=== PATIENT | female | born 1960 | race Caucasian/White ===

== ENCOUNTER → 2023-09-16 08:13 | Outpatient (REF) | payer MEDICARE, SELFPAY | LOC: HWRAD 08:13 | PROVIDERS: ATTENDING PHYSICIAN Family Medicine | DX: R74.8 Abnormal levels of other serum enzymes (principal) | CPT/HCPCS: 76700 ==

== ENCOUNTER → 2023-11-12 14:36 | Outpatient (REF) | payer MEDICARE, SELFPAY | LOC: HWWDC 14:36 | PROVIDERS: ATTENDING PHYSICIAN Family Medicine | DX: Z12.31 Encounter for screening mammogram for malignant neoplasm of breast (principal) | CPT/HCPCS: 77063; 77067 ==

== ENCOUNTER → 2024-05-03 12:09 | Outpatient (REF) | payer MEDICARE, SELFPAY | LOC: UCDH 12:09 | PROVIDERS: ATTENDING PHYSICIAN Physician Assistant Medical; FAMILY PHYSICIAN Family Medicine | DX: S40.011A Contusion of right shoulder, initial encounter (principal) | CPT/HCPCS: 73030 ==

== ENCOUNTER → 2024-05-06 12:47 | Outpatient (REF) | payer MEDICARE, SELFPAY | LOC: RAD 12:47 | PROVIDERS: ATTENDING PHYSICIAN Student in an Organized Health Care Education/Training Program; FAMILY PHYSICIAN Family Medicine | DX: S42.251A Displaced fracture of greater tuberosity of right humerus, initial encounter for closed fracture (principal) | CPT/HCPCS: 73200 ==

== ENCOUNTER 2024-05-13 06:37 | Day surgery (SDC) | payer MEDICARE, SELFPAY ==
[2024-05-13] VITALS (31 sets, daily range): BP systolic 71–145; BP diastolic 53–86; BMI 26.0
[2024-05-13 08:37] LABS: Glucose - Point of Care 193 mg/dl (70-99)
[2024-05-13] MEDS: CELEBREX 200 MG PO (09:04)
[2024-05-13] MEDS: TYLENOL 1000 MG PO (09:04)
[2024-05-13 09:40] LABS: Hematocrit 45.3 % (37.0-47.0); Mean Corp Hgb Conc. 35.3 g/dL (33.0-37.0); Mean Corpuscular Hgb 33.5 pg (27.0-31.0); Mean Platelet Volume 9.4 fL (7.4-10.4); Platelet Count 274 10^3/uL (130-400); Red Blood Cell Count 4.77 10^6/uL (4.20-5.40); Red Cell Dist. Width 12.7 % (11.5-14.5); White Blood Cell Count 7.9 10^3/uL (4.8-10.8)
[2024-05-13 10:53] LABS: Glucose - Point of Care 131 mg/dl (70-99)
[2024-05-13 11:35] LABS: Glucose - Point of Care 101 mg/dl (70-99)
[2024-05-13] MEDS: NORMOSOL-R/PLASMALYTE-A 500 IV ×2 (11:53→12:59)
[2024-05-13 13:40] LABS: Glucose - Point of Care 139 mg/dl (70-99)
== END 2024-05-13 15:05 | disposition home or self-care (01) ==
LOC: SDS 06:37
PROVIDERS: ATTENDING PHYSICIAN Specialist
DX: S42.251A Displaced fracture of greater tuberosity of right humerus, initial encounter for closed fracture (principal); W19.XXXA Unspecified fall, initial encounter; Y93.K1 Activity, walking an animal
CPT/HCPCS: 23630; 73030; 76000; 82962; 85027; 93005; C1713; C1769

== ENCOUNTER → 2024-06-21 13:22 | Outpatient (REF) | payer MEDICARE, SELFPAY | LOC: RAD 13:22 | PROVIDERS: ATTENDING PHYSICIAN Student in an Organized Health Care Education/Training Program; FAMILY PHYSICIAN Family Medicine | DX: I73.9 Peripheral vascular disease, unspecified (principal); E78.2 Mixed hyperlipidemia; I77.1 Stricture of artery | CPT/HCPCS: 75571; 93880 ==

== ENCOUNTER → 2024-07-07 14:39 | Outpatient (REF) | payer MEDICARE, SELFPAY | LOC: RAD 14:39 | PROVIDERS: ATTENDING PHYSICIAN Student in an Organized Health Care Education/Training Program; FAMILY PHYSICIAN Family Medicine | DX: R42 Dizziness and giddiness (principal) | CPT/HCPCS: 70496; 70498; Q9967 ==

== ENCOUNTER 2024-08-09 06:11 | Inpatient (IN) | payer MEDICARE, SELFPAY ==
[2024-08-04 08:58] VITALS: BMI 26.8
[2024-08-04 09:21] LABS: % Basophils 0.7 % (0-2); % Immature Granulocytes 0.5 % (0-0.5); % Lymphocytes 27.5 % (20.5-51.1); % Monocytes 8.6 % (1.7-9.3); % Neutrophils 62.7 % (42.2-75.2); Absolute Basophils 0.1 10^3/uL (0-0.2); Absolute Lymphocytes 2.4 10^3/uL (1.2-3.4); Absolute Monocytes 0.8 10^3/uL (0.1-0.6); Absolute Neutrophils 5.5 10^3/uL (1.4-6.5); Hematocrit 47.2 % (37.0-47.0); Hemoglobin 16.2 g/dL (12.0-16.0); Mean Corp Hgb Conc. 34.3 g/dL (33.0-37.0); Mean Corpuscular Hgb 32.4 pg (27.0-31.0); Mean Corpuscular Volume 94.4 fL (81.0-99.0); Mean Platelet Volume 9.7 fL (7.4-10.4); Nucleated Red Blood Cells % 0 %; Platelet Count 256 10^3/uL (130-400); Red Cell Dist. Width 12.7 % (11.5-14.5); White Blood Cell Count 8.7 10^3/uL (4.8-10.8)
[2024-08-04 09:33] LABS: INR 0.97; PT 13.4 Sec (11.4-14.6)
[2024-08-04 09:34] LABS: APTT 35.3 Sec (23.4-35.0)
[2024-08-04 10:00] LABS: Blood Urea Nitrogen 29 mg/dl (7-17); Calcium 9.3 mg/dl (8.4-10.2); Carbon Dioxide 29 mmol/L (22-30); Chloride 103 mmol/L (98-107); Estimated Creatinine Clearance 56 ml/min; Glucose 117 mg/dl (70-99); Potassium 4.3 mmol/L (3.5-5.1); Sodium 138 mmol/L (135-145); eGFR > 60.00
[2024-08-09] VITALS (13 sets, daily range): BP systolic 119–150; BP diastolic 66–85; BMI 28.5
[2024-08-09] MEDS: BACTROBAN NASAL 1 GRAM NASAL (07:21)
[2024-08-09] MEDS: PERIDEX 0.12% ORAL RINSE 15 ML PO (07:22)
[2024-08-09] MEDS: NSS 500 IV (07:22)
[2024-08-09 07:34] LABS: Glucose - Point of Care 126 mg/dl (70-99)
--- NOTE | 2024-08-09 07:44 | W.SUR.PREOP ---
Pre-Operative Surgical Note
-
I have examined this patient prior to the performance of the scheduled procedure.
The patient's condition is unchanged from the time of the current History and
Physical and the patient is able to undergo the scheduled procedure.
[2024-08-09 09:08] LABS: ACT-LR - POC 322 Seconds (116-155)
[2024-08-09 09:46] LABS: Glucose - Point of Care 122 mg/dl (70-99)
--- NOTE | 2024-08-09 10:15 | W.IMMPOSTOP ---
Surgical Immed Post Op Note
-
Primary Surgeon: Lea
Assisting Surgeon: Zaria
Pre-op Diagnosis: R carotid stenosis
Post-op Diagnosis: R carotid stenosis
Procedure Performed: R CEA
Anesthesia Type: General
Specimen / Cultures: None
Estimated Blood Loss: 30 cc
Complications: None
Operative Findings: R CEA
[2024-08-09 10:40] LABS: Glucose - Point of Care 146 mg/dl (70-99)
[2024-08-09] MEDS: CARDENE 200 IV (10:45)
--- NOTE | 2024-08-09 10:46 | OR.RPT ---
Operative Report
Operative Report
Date of Operation: 08/09/2024
Pre Op Diagnosis: Asymptomatic high-grade right carotid artery stenosis
Post Op Diagnosis: Asymptomatic high-grade right carotid artery stenosis
Procedure: RIGHT carotid endarterectomy with patch angioplasty using bovine pericardium
Surgeon: Charly Tate III, MD
Repairer Welding Equipment: Joseph Enciso MD PGY1
Anesthesia: General
Complications: None
History and Indications for Procedure: 64-year-old female with high-grade asymptomatic right carotid artery stenosis
Procedure in Detail: Bernadette Aceves was correctly identified and placed supine on the operating table. After adequate induction of anesthesia the right neck was positioned, prepped and draped in the usual sterile fashion. Preoperative antibiotics
were administered. A timeout procedure was performed with the nursing and anesthesia staff confirming the patients identity as well as the nature and laterality of the procedure.
The carotid bifurcation was marked with ultrasound at the beginning of the case. The incision was planned accordingly. An incision was made along the anterior border of the right sternocleidomastoid muscle. Electrocautery was used to divide the
subcutaneous tissue and platysma. The carotid sheath was entered with sharp dissection. The internal jugular vein was retracted laterally. The vagus nerve was identified and protected throughout the case. The common carotid artery was identified at
the base of this incision and carefully encircled with a vessel loop. The patient was systemically heparinized. The dissection was continued distally towards the carotid bifurcation. The facial vein was skeletonized, ligated and divided between ties
and clips. The proximal external carotid artery was encircled with a vessel loop. The distal internal carotid artery was encircled with a vessel loop at a soft spot on the artery beyond the plaque.
The internal vessel loop was secured followed by the common and external. An arteriotomy was made on the distal common carotid artery with an 11-blade. This was extended proximally and distally with Caputo scissors. The arteriotomy was extended
distally through the plaque to an area of normal appearing internal carotid artery. The distal vessel loop was replaced with a short tip hockey-stick type vascular clamp. An endarterectomy was performed with a [place] elevator in the standard
fashion. The proximal extent of the plaque was transected with scissors. The distal end of the plaque in the internal carotid artery feathered nicely with no distal intimal flap identified. The plaque extending into the external carotid artery was
everted. Once the plaque was fully removed the endarterectomy plane was irrigated with heparinized saline and any loose fronds of tissue were removed. A pre-cut piece of bovine pericardium was sewn in place using a running 6-0 Prolene suture. Prior
to the completion of the patch the common carotid was allowed to forward bleed and the external was allowed to back bleed. The area under the patch was irrigated with heparinized saline to remove any potential thrombus or debris. The anastomosis was
completed.
The external vessel loop was released first, followed by the common and then the internal. There was an excellent pulse in the distal internal carotid artery. An excellent quality Doppler signal in the distal internal carotid artery was also
confirmed. The patch suture line was closely inspected for hemostasis and was achieved. Protamine was administered. Hemostasis was achieved in the wound bed. The wound was irrigated with saline solution.
The wound was then closed in layers. Sterile skin glue was applied. The patient awoke from anesthesia with no immediate neuro deficits and was taken to the PACU in stable condition.
Attestation: I was present and responsible for the entire procedure
Signed:
Charly Tate III, MD
[facility] Vascular Surgery
[phone] (cell)
[2024-08-09] MEDS: DILAUDID 0.5 MG IV ×3 (11:06→22:27)
[2024-08-09 11:15] LABS: Hematocrit 44.3 % (37.0-47.0); Hemoglobin 14.6 g/dL (12.0-16.0); Mean Corpuscular Hgb 31.8 pg (27.0-31.0); Mean Corpuscular Volume 96.5 fL (81.0-99.0); Mean Platelet Volume 9.9 fL (7.4-10.4); Platelet Count 235 10^3/uL (130-400); Red Blood Cell Count 4.59 10^6/uL (4.20-5.40); Red Cell Dist. Width 12.6 % (11.5-14.5)
[2024-08-09 11:43] LABS: Blood Urea Nitrogen 17 mg/dl (7-17); Calcium 8.1 mg/dl (8.4-10.2); Carbon Dioxide 19 mmol/L (22-30); Chloride 111 mmol/L (98-107); Estimated Creatinine Clearance 85 ml/min; Glucose 159 mg/dl (70-99); Sodium 139 mmol/L (135-145); eGFR > 60.00
[2024-08-09] MEDS: DILAUDID 0.25 MG IV (11:46)
[2024-08-09] MEDS: NSS 1000 IV (12:05)
--- NOTE | 2024-08-09 13:08 | CON.INTV ---
Consultation
Consultation Request
Date/Time Consultation Requested: 08/09/2024-1 PM
Date/Time Consultation Performed: 08/09/2024-1:30 PM
Requesting Provider: Vascular surgery
Performing Provider: Dr. Lew
Reason for Consultation: Postoperative critical care management
Medical History
-
Chief Complaint: Carotid stenosis
History of Present Illness:
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
consulted for postoperative critical care management 08/09/2024. The patient had a significant headache-received nitroglycerin intraoperatively, and is seen postoperatively. She continues to have a headache but much improved. She has no dysarthria
or focal weakness. She denies any shortness of breath, chest congestion, productive cough, abdominal pain, leg swelling or weakness.
Past Medical History
Past Medical History: None (Hypertension. Hyperlipidemia. Diabetes. Chronic leg neuropathy. Cigarette smoker-2 daily. PE postoperatively. Carotid stenosis. Right TKA 2010. Back surgery. Shoulder fracture 04/2024.)
Social History
Tobacco: Smoker (2 cigarettes daily for most of her adult life)
Alcohol: Occasional
Drug: None
Living: With Family
Occupational Exposures: No known asbestos exposure
Environmental Exposures: No known tuberculosis exposure
Family History
Family History: Reviewed & Not Pertinent and Other (Father-CAD. Mother CAD and stomach cancer. Paternal grandfather colon cancer. Paternal uncle colon cancer. Sibling with lymphoma. Sisters with diabetes. Brother with prostate cancer.)
Allergies / Home Medications
Allergies
Allergy/AdvReac Type Severity Reaction Status Date / Time
acetaminophen [From Percocet] Allergy Unknown Itching Verified 08/09/24 07:33
oxycodone [From Percocet] Allergy Unknown Itching Verified 08/09/24 07:33
hydrocodone Allergy Itching Verified 08/02/24 08:07
pollen extracts Allergy seasonal Verified 08/02/24 08:07
allergies
Home Medications
�Medication �Instructions �Recorded �Confirmed �Last Taken �Type
atenolol 50 mg tablet 50 mg PO HS 10/08/10 08/09/24 08/08/24 21:00 History
Berberine Dietary Support 1,500 mg PO DAILY 05/11/24 08/09/24 08/08/24 07:00 History
canagliflozin 100 mg tablet 100 mg PO DAILY 05/11/24 08/09/24 08/06/24 History
(Invokana)
ezetimibe 10 mg tablet 10 mg PO DAILY 05/11/24 08/09/24 08/08/24 07:00 History
gabapentin 600 mg tablet 1,200 mg PO HS 05/11/24 08/09/24 08/08/24 21:00 History
ibuprofen 200 mg tablet 400 - 600 mg PO Q8H PRN pain 05/11/24 08/09/24 08/08/24 21:00 History
icosapent ethyl 1 gram capsule 2 g PO BID 05/11/24 08/09/24 08/08/24 21:00 History
(Vascepa)
insulin glargine 100 unit/mL (3 24 unit SC HS 05/11/24 08/09/24 08/08/24 21:00 History
mL) subcutaneous pen (Lantus
Solostar U-100 Insulin)
L. crispatus, gasseri, jensenii, 1 cap PO DAILY 08/02/24 08/09/24 08/08/24 07:00 History
rhamnosus 5 billion cell capsule
([employer] Probiotic)
evolocumab 140 mg/mL subcutaneous 140 mg SC Q2W 08/02/24 08/09/24 08/08/24 History
pen injector (Repatha SureClick)
aspirin 81 mg chewable tablet 81 mg PO DAILY 08/09/24 08/09/24 08/08/24 History
Review of Systems
-
Unable to Obtain full review of systems at this time due to: Other (Per HPI)
Vitals / Labs / Diagnostic Testing
Vital Signs
Temp Pulse Resp BP Pulse Ox
97.9 F 70 18 119/77 96
08/09/24 12:52 08/09/24 12:00 08/09/24 12:00 08/09/24 12:15 08/09/24 12:15
Lab Data
08/09/24 10:45
08/09/24 10:45
Diagnostic Testing:
Physical Exam
-
Exam:
Well-nourished and well-developed in no apparent distress
HEENT-atraumatic, normocephalic
Neck-supple, no JVD, no bruit
Heart-regular rate and rhythm-no murmurs, rubs or gallops
Chest-clear to auscultation, no wheezes, crackles
Back-no tenderness
Abdomen-soft, nontender, nondistended, no hepatosplenomegaly
Extremities-no cyanosis, clubbing, edema and good peripheral pulses
Integument-intact, no rashes, lesions or ecchymosis
Neurology-alert and oriented, nonfocal motor and sensory exam
Assessment
-
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
consulted for postoperative critical care management 08/09/2024.
Asymptomatic high-grade right carotid stenosis
Status post right carotid endarterectomy-Dr. Tate 08/09/2024
Hypertension
Hyperglycemia
Conditions present prior to admission:
Hypertension.
Hyperlipidemia.
Diabetes.
Chronic leg neuropathy.
Cigarette smoker-2 daily.
PE postoperatively.
Carotid stenosis.
Right TKA 2010. Back surgery. Shoulder fracture 04/2024.
Plan
Postoperative surgical intensive care unit monitoring
Supplemental oxygen as needed
Incentive spirometry
Aspiration precautions
Neuro and vascular checks per protocol
Monitor blood pressure/perfusion pressures and pulses closely
Monitor blood pressure-nitroglycerin given in the operative room, nicardipine as needed-attempt to wean
Vascular surgery following-correspondence and operative notes reviewed
Monitor blood sugar
Insulin supplementation as needed
DVT prophylaxis
Early nutrition
Early mobilization
Critical care statement: A total of 55 minutes of critical care time was provided for this patient today. This includes management of unstable vital signs, evaluation of the patient at bedside, reviewing the patient's pertinent medical records
including radiographs, microbiology, laboratory evaluations, and discussion with primary team, consultants, pharmacy, nutrition, physical therapy, case management, charge nurse, critical care nursing, and respiratory therapy.
Diagnostic data:
Chest x-ray 08/04/2024-NAD
CT coronary calcium score 572.6, mild atelectasis lung bases otherwise clear
Echocardiogram 04/20/2014-EF 55-60%, diastolic dysfunction, trace mitral regurgitation
Data Reviewed
-
EKG: Report reviewed by me
Radiology: Report reviewed by me
CT Scan: Report reviewed by me
Medical Tests (Nuc Med, Echo etc): Report reviewed by me
Labs: Labs reviewed by me
Old Records: Reviewed
Critical Care Time (in minutes): 55
[2024-08-09] MEDS: NOVOLOG FLEXPEN-MODERATE RESISTANCE SC (13:46)
--- NOTE | 2024-08-09 14:25 | PTCARENOTE ---
Updated assessment, vital sign trends ongoing. IVF aqs ordered Cardene weaned off as per parameters. Vascular team at bedside, updated neuro assessment trends. Will continue with hourly checks. Family updated at bedside with patient as per her
request. Advance diet as tolerated. Will continue with icu teaching and follow up plan of cares. Steel Sash Erector team at bedside for follow up consult. Room orientation and admission assessment completed. Critical care teaching, room orientation, plan
of cares all ongoing. Continue hourly checks and follow up.
[2024-08-09] MEDS: TYLENOL 650 MG PO ×2 (15:14→19:17)
[2024-08-09] MEDS: ULTRAM 50 MG PO (16:39)
[2024-08-09 17:05] LABS: Glucose - Point of Care 278 mg/dl (70-99)
[2024-08-09] MEDS: NOVOLOG FLEXPEN-MODERATE RESISTANCE 5 UNITS SC (17:24)
--- NOTE | 2024-08-09 17:50 | PTCARENOTE ---
Patient assessment improving. Headache resolved at this assessment. C/C of stiffness in neck and shoulder, patient states from previous back surgery and pain history. Compress and ice as needed. Will follow pain medications via Emar. Review
medications with pharmacy follow up plan of cares with patient. Eating dinner at this assessment. Follow up labs and vital sign trends. Neuro assessments ongoing. Right CEA clean dry intact with surgical adhesive as noted.
[2024-08-09] MEDS: HEPARIN 5000 UNITS SC (20:01)
--- NOTE | 2024-08-09 20:28 | PTCARENOTE ---
Pt received start of shift, bedside handoff w/ previous shift RN. HR SR on telemetry. Pain rating 4/10 at R neck incision site. Surgical glue intact. Minimal swelling noted - Ice application per order. PRN tylenol - see AUG. Pt in good spirits.
Neuro WNL. AAOX4, oriented conversation. Pupils +3 b/l. Good strength all extremities. A-line zeroed, correlating with BP cuff. NSS infusing at 80mL/hr. DP pulses palpable b/l on the weaker side, PT pulses b/l normal.
[2024-08-09] MEDS: TENORMIN 50 MG PO (21:12)
[2024-08-09] MEDS: NEURONTIN 1200 MG PO (21:12)
[2024-08-09] MEDS: LANTUS 0.24 UNITS SC (21:13)
[2024-08-09 21:22] LABS: Glucose - Point of Care 277 mg/dl (70-99)
[2024-08-09] MEDS: NOVOLOG FLEXPEN 5 UNITS SC (21:37)
[2024-08-10] VITALS (8 sets, daily range): BP systolic 104–155; BP diastolic 58–84; BMI 28.2
[2024-08-10] MEDS: NSS 1000 IV (00:07)
[2024-08-10 00:10] LABS: Glucose - Point of Care 192 mg/dl (70-99)
--- NOTE | 2024-08-10 00:30 | PTCARENOTE ---
HS blood sugar check 277. Scheduled 24u Lantus administered. Spoke w/ PIN ATTACHER Louise Cleaning, 5 units additional novolog ordered and administered. 95% RA. Pain management - see AUG. Continuing ice application as ordered. Neuro unchanged from previous
assessment, WNL. Voiding well.
[2024-08-10] MEDS: DILAUDID 0.5 MG IV (02:52)
[2024-08-10 05:02] LABS: Hematocrit 41.2 % (37.0-47.0); Hemoglobin 13.7 g/dL (12.0-16.0); Mean Corp Hgb Conc. 33.3 g/dL (33.0-37.0); Mean Corpuscular Hgb 32.1 pg (27.0-31.0); Mean Corpuscular Volume 96.5 fL (81.0-99.0); Mean Platelet Volume 9.7 fL (7.4-10.4); Platelet Count 240 10^3/uL (130-400); Red Blood Cell Count 4.27 10^6/uL (4.20-5.40); Red Cell Dist. Width 12.6 % (11.5-14.5); White Blood Cell Count 13.6 10^3/uL (4.8-10.8)
[2024-08-10 05:11] LABS: INR 1.03; PT 13.8 Sec (11.4-14.6)
[2024-08-10 05:12] LABS: APTT 31.9 Sec (23.4-35.0)
[2024-08-10 05:22] LABS: Blood Urea Nitrogen 18 mg/dl (7-17); Calcium 9.1 mg/dl (8.4-10.2); Carbon Dioxide 24 mmol/L (22-30); Chloride 110 mmol/L (98-107); Estimated Creatinine Clearance 95 ml/min; Glucose 146 mg/dl (70-99); Potassium 4.3 mmol/L (3.5-5.1); Sodium 140 mmol/L (135-145); eGFR > 60.00
--- NOTE | 2024-08-10 05:41 | PTCARENOTE ---
Pt with pain at incision site that she describes as 'occasionally shooting' up to her ear on the R side. Incision site looks less swollen than start of shift. No further changes to incision site. PRN dilaudid, effective. Pt also requesting a stool
softener - spoke w/ LOG HOOKER Louise Cleaning, PRN colace and sennakot added to MAR. Cardene infusion placed back on at 0115 for sustained SBP >165. Infusion titrated to off ~0418 per order. Neuro WNL, remains unchanged.
[2024-08-10 07:39] LABS: Glucose - Point of Care 147 mg/dl (70-99)
--- NOTE | 2024-08-10 07:42 | W.PN.INTV ---
Today's Communication / Plan
Recommendations
deline
Increase activity
Transfer out of ICU-call pulmonary if respiratory issues arise
Assessment
-
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
consulted for postoperative critical care management 08/09/2024.
Asymptomatic high-grade right carotid stenosis
Status post right carotid endarterectomy-Dr. Tate 08/09/2024
Hypertension
Hyperglycemia
Conditions present prior to admission:
Hypertension.
Hyperlipidemia.
Diabetes.
Chronic leg neuropathy.
Cigarette smoker-2 daily.
PE postoperatively.
Carotid stenosis.
Right TKA 2010. Back surgery. Shoulder fracture 04/2024.
Plan
Hemodynamically and neurovascularly intact-no longer has headache
Wean supplemental oxygen
Incentive spirometry encourage
Aspiration precautions
Monitor hemoglobin
Transfuse if needed
Monitor blood sugars
Insulin supplementation if needed
Neuro and vascular checks per protocol also continue
Vascular surgery closely
DVT prophylaxis recommended
Nutrition
Increase activity/physical therapy
Patient can be transferred out of ICU-call pulmonary if respiratory issues arise
Reviewed the patient's pertinent medical records including radiographs, microbiology, laboratory evaluations, and discussion with primary team, consultants, pharmacy, nutrition, physical therapy, case management, charge nurse, critical care
nursing, and respiratory therapy.
Diagnostic data:
Chest x-ray 08/04/2024-NAD
CT coronary calcium score 572.6, mild atelectasis lung bases otherwise clear
Echocardiogram 04/20/2014-EF 55-60%, diastolic dysfunction, trace mitral regurgitation
Subjective Dataa
Subjective Data
Date of Service:
Date of Service: August 10, 2024
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
Subjective:
No longer has a headache, no complaints of shortness of breath, chest pain or abdominal pain,
Review of Systems
General: Other (per HPI)
Objective Data
Data Reviewed
Vital Signs / I&O / Oxygen:
Vital Signs
Temp Pulse Resp BP Pulse Ox
97.5 F 62 12 104/58 95
08/10/24 07:41 08/10/24 06:30 08/10/24 06:30 08/10/24 04:00 08/09/24 22:45
Intake and Output
08/09/24 08/10/24 08/11/24
06:59 06:59 06:59
Intake Total 2965 / 2965
Output Total 2350 / 2350
Balance 615 / 615
SaO2 95
Nasal Cannula flow liters per 2
minute
Physical Exam
General: Respiratory Distress (n) and Comfortable
HEENT: Normocephalic, Anicteric and Moist Mucous Membranes
Cardiovascular: Regular Rhythm
Respiratory: Wheeze (n), Crackles, Rhonchi (n), Non-Labored Respirations and Accessory Resp Muscle Use (n)
GI: Soft, Non Distended and Non Tender
Neurology: Awake and Alert
Skin: Warm, Good Color, Cyanosis (n), Jaundice (n) and Rash (n)
Labs/Micro/Reports
Lab Data
08/10/24 04:42
08/10/24 04:42
Laboratory Results
08/10/24
04:42
PT 13.8
INR 1.03
APTT 31.9
[2024-08-10] MEDS: NOVOLOG FLEXPEN-MODERATE RESISTANCE SC ×2 (08:03→12:20)
[2024-08-10] MEDS: SENOKOT 17.2 MG PO (08:04)
[2024-08-10] MEDS: COLACE 100 MG PO (08:04)
[2024-08-10] MEDS: HEPARIN 5000 UNITS SC (08:04)
[2024-08-10] MEDS: ZETIA 10 MG PO (08:05)
[2024-08-10] MEDS: FARXIGA 10 MG PO (08:05)
[2024-08-10] MEDS: NSS IV (08:05)
--- NOTE | 2024-08-10 08:25 | W.PN.VS ---
Addendum entered and electronically signed by Dale Novak MD 08/10/24 10:30:
Seen and examined with COMPOSITION TILE LAYER. Agree with findings as noted below. No significant complaints. Right neck incision clean dry and intact. No significant hematoma. Neurologically no focal deficits. Moves all extremities well. Tongue midline.
Plan/as discussed and noted below.
Original Note:
Today's Communication / Plan
-
Patient seen and examined at bedside with Dr. Dale Novak, below plan reviewed with attending
Assessment/Plan
-
Assessment: 64-year-old female POD #1 right carotid endarterectomy
Plan:
Discontinue arterial line
Discontinue IV fluids
OOB to chair with progression to ambulation as tolerated
Possible discharge later this afternoon
Subjective Data
-
Date of Service: August 10, 2024
Patient seen and examined at bedside, offers no complaints. Reports complete resolution of postoperative headache. Denies nausea, vomiting, fever, and chills. Reports tolerating p.o. diet.
Objective Data
-
Vital Signs
Temp Pulse Resp BP Pulse Ox
97.5 F 62 12 104/58 95
08/10/24 07:41 08/10/24 06:30 08/10/24 06:30 08/10/24 04:00 08/09/24 22:45
Intake and Output
08/09/24 08/10/24 08/11/24
06:59 06:59 06:59
Intake Total 2965 / 2965
Output Total 2350 / 2350
Balance 615 / 615
Intake:
Oral fluids 1200 / 1200
IV fluids (Total) 1765 / 1765
Cardene
NSS 1740 / 1740
Output:
Urine, Tate 400 / 400
Urine, Voided 1949 / 1949
Other:
Number of approximated MODERATE 1
amounts of urine
Lab Results
08/10/24 04:42
08/10/24 04:42
Calcium 9.1 mg/dl (8.4-10.2) 08/10/24 04:42
Physical Exam
-
No apparent distress, resting in bed comfortably
Right neck surgical incision CDI, no evidence of hematoma, Exofin glue intact with suture line well-approximated, tongue midline, face symmetrical
No tachycardia
No dyspnea on room air
Moves bilateral upper extremities and lower extremities with equal strength
--- NOTE | 2024-08-10 09:53 | PTCARENOTE ---
Update with vascular team. Start POD 1 process. Delined out of bed to chair for breakfast. Ambulate to bathroom with supervision tolerating well. Continue update with Equity Research Analyst team, at bedside with patient this am. Will continue to follow up plan
of cares and plan for possible discharge later today. Continue with mobility follow up.
--- NOTE | 2024-08-10 10:33 | CM ---
Addendum entered by Teena Chang 08/10/24 12:45:
Discharge to home today; no needs
Original Note:
Met with patient at bedside; initial assessment completed
IMM benefit explained; form signed @ 1030
Address verified: [address] [place] [address]; admissions notified; chart updated
Pharmacy verified: [facility] @ [address] [place] [address]
Patient lives alone in a one floor apartment; no steps to enter; bath has tub w/shower and grab bar
PLOF: reported she is independent with ambulation and ADLs;
DME: [employer]
Sister will transport home
NO history of SNF utilization
Reported some challenges with Financial insecurity; [employer] resource provided
Plan: Discharge to home; PT screening pending; CM will monitor for DC needs and support accordingly
[2024-08-10] MEDS: ULTRAM 50 MG PO (10:57)
--- NOTE | 2024-08-10 11:56 | W.[place]-PDMP ---
[place]-PD[place]
-
Checked the [place]- Prescription Drug Monitoring Program website, no red flags identified; safe to proceed with prescription.
--- NOTE | 2024-08-10 11:59 | W.DS.TRANS ---
DC Summary - Manager Creative Services
-
Discharge Instructions:
Sleep Apnea Risk Intermediate
Discharge Diagnosis/Procedures Right carotid endarterectomy
Diet As tolerated
Activity No strenuous activity
Driving Restrictions Not until seen by your Dr
Bathing Restrictions OK to Shower
Instructions:
Stand-Alone Forms: DC Instr - Vascular OR
Changes to Home Medications: Yes
Discharge Medications:
DC Medications w/original date entered in [employer]
atenolol 50 mg tablet 50 mg PO HS 10/08/10
Berberine Dietary Support 1,500 mg PO DAILY 05/11/24
canagliflozin 100 mg tablet (Invokana) 100 mg PO DAILY 05/11/24
ezetimibe 10 mg tablet 10 mg PO DAILY 05/11/24
gabapentin 600 mg tablet 1,200 mg PO HS 05/11/24
ibuprofen 200 mg tablet 400 - 600 mg PO Q8H PRN pain 05/11/24
icosapent ethyl 1 gram capsule (Vascepa) 2 g PO BID 05/11/24
insulin glargine 100 unit/mL (3 mL) subcutaneous pen (Lantus Solostar U-100 Insulin) 24 unit SC HS 05/11/24
L. crispatus, gasseri, jensenii, rhamnosus 5 billion cell capsule ([employer] Probiotic) 1 cap PO DAILY 08/02/24
evolocumab 140 mg/mL subcutaneous pen injector (Repathraman Jimenezick) 140 mg SC Q2W 08/02/24
aspirin 81 mg chewable tablet 81 mg PO DAILY 08/09/24
hydromorphone 2 mg tablet 2 mg PO Q6HPRN PRN severe pain #10 tabs 08/10/24
Home Medication Changes
Added hydromorphone for pain management
Pending Results: No
--- NOTE | 2024-08-10 12:00 | W.DCSUMMARY ---
Discharge Summary
Discharge Data
Date of Admission: 08/09/24
Date of Discharge: 08/10/24
-
Pending Results: No
Hospital Course
Attending: Lea
Consultants: Pulmonary medicine
Allergies: Percocet, hydrocodone, pollen
Procedure with date: 08/09/2024: Right carotid endarterectomy with patch angioplasty
History of present illness: The patient is an 64-year-old female with multiple medical conditions including: carotid stenosis, hypertension, hyperlipidemia, diabetes, neuropathy, smoker, PE, right TKA, back and shoulder surgery. Patient presented on
08/09/2024 for scheduled procedure with Dr. Tate. Patient presented at baseline health with no reports of recent illness or trauma.
Hospital Course: Briefly, the patient underwent scheduled CEA without complications, and recovered in PACU. Following recovery phase one and two patient was transferred to intensive care unit per protocol for continued hemodynamic monitoring.
Food Service Aide consulted to aid in medical management from a critical care perspective. POD #1 (08/10/2024) Patient neurologically intact, face symmetrical, and tolerating PO diet. Surgical neck site clean, dry, and intact with suture line well
approximated and soft. No evidence of hematoma. Arterial line and IV fluids discontinued. Patient able to ambulate without difficulty or incident. Patient stable for discharge to home.
Prescriptions and follow up appointment are included in the DC summary tax compliance agent note. All instructions were given to the patient in both written and verbal form and the patient expressed understanding.
Discharge Plan
-
Patient Disposition: Home (Routine Discharge)
Discharge Diagnosis/Procedures: Right carotid endarterectomy
Condition: Good
Diet: As tolerated
Activity: No strenuous activity
Driving Restrictions: Not until seen by your Dr
Bathing Restrictions: OK to Shower
Activity Restrictions/Additional Instructions:
If you experience severe constant headache, weakness to an arm or leg, change in vision, trouble speaking or any stroke-like symptom, call 911 immediately
If you experience swelling, increased bruising, drainage from neck site, or fever, please call the office
Stand Alone Forms: DC Instr - Vascular OR
Referrals:
Leny Jay PA-C [Specified Professional Personl] - 08/23/24 9:30 am
Papo Hernandez DO [Primary Care Provider] -
Prescriptions:
New
hydromorphone 2 mg Tablet
2 mg PO Q6HPRN PRN (Reason: severe pain) Qty: 10 0RF
Continued
atenolol 50 MG tablet
50 mg PO HS
gabapentin 600 mg Tablet
1,200 mg PO HS
ibuprofen 200 mg Tablet
400 - 600 mg PO Q8H PRN (Reason: pain)
ezetimibe 10 mg Tablet
10 mg PO DAILY
insulin glargine [Lantus Solostar U-100 Insulin] 100 unit/mL (3 mL) Insulin Pen
24 unit SC HS
icosapent ethyl [Vascepa] 1 gram Capsule
2 g PO BID
Invokana 100 mg Tablet
100 mg PO DAILY
Berberine Dietary Support
1,500 mg PO DAILY
Repatha SureClick 140 mg/mL Pen Injector
140 mg SC Q2W
Azo Vaginal Health Probiotic 5 billion cell Capsule
1 cap PO DAILY
aspirin 81 mg Tablet,Chewable
81 mg PO DAILY
Discharge Orders:
Discharge Patient (As Directed); Ordered 08/10/24
Ordered By: Mary Bianchi
Discharge Date and Time
Print Language: MOZAMBICAN
[2024-08-10 12:06] LABS: Glucose - Point of Care 114 mg/dl (70-99)
--- NOTE | 2024-08-10 13:03 | PTCARENOTE ---
Updated discharge teaching. Patient ambulate room and hallway. Voiding with out difficulty. Continue follow up teaching until discharge. Vascular team at bedside to review plan of cares, follow up appointments and scripts updated. Await family for
transportation home. Lunch provided at this time. Patient verbalizes satisfaction of cares and understanding of teaching and discharge instructions.
== END 2024-08-10 13:57 | disposition home or self-care (01) | DRG 38 ==
LOC: ICU 06:11
PROVIDERS: Nurse Practitioner; ADMITTING PHYSICIAN Surgery Vascular Surgery; CONSULT PHYSICIAN Internal Medicine Critical Care Medicine; PRIMARYCARE PHYSICIAN Family Medicine
PROC: 03UK0KZ Supplement Right Internal Carotid Artery with Nonautologous Tissue Substitute, Open Approach (ICD-10-PCS; 2024-08-09)
PROC: 03CK0ZZ Extirpation of Matter from Right Internal Carotid Artery, Open Approach (ICD-10-PCS; 2024-08-09)
DX: I65.21 Occlusion and stenosis of right carotid artery (principal); I50.32 Chronic diastolic (congestive) heart failure; I11.0 Hypertensive heart disease with heart failure; I77.1 Stricture of artery; E78.2 Mixed hyperlipidemia; E78.01 Familial hypercholesterolemia; E11.41 Type 2 diabetes mellitus with diabetic mononeuropathy; E11.51 Type 2 diabetes mellitus with diabetic peripheral angiopathy without gangrene; E11.65 Type 2 diabetes mellitus with hyperglycemia; F17.210 Nicotine dependence, cigarettes, uncomplicated; E66.9 Obesity, unspecified; Z88.5 Allergy status to narcotic agent; Z79.4 Long term (current) use of insulin; Z79.84 Long term (current) use of oral hypoglycemic drugs; Z79.899 Other long term (current) drug therapy; Z96.651 Presence of right artificial knee joint; Z68.28 Body mass index [BMI] 28.0-28.9, adult
CPT/HCPCS: 35301; 36415; 71046; 80048; 82962; 85025; 85027; 85610; 85730; 86850; 86900; 86901; 95938; 95941; 95955

== ENCOUNTER → 2024-09-07 10:02 | Outpatient (REF) | payer MEDICARE, SELFPAY | LOC: RAD 10:02 | PROVIDERS: ATTENDING PHYSICIAN Registered Nurse; FAMILY PHYSICIAN Family Medicine | DX: I65.21 Occlusion and stenosis of right carotid artery (principal) | CPT/HCPCS: 93880 ==

== ENCOUNTER → 2024-09-29 10:01 | Outpatient (REF) | payer MEDICARE, SELFPAY | LOC: RCS 10:01 | PROVIDERS: ATTENDING PHYSICIAN Student in an Organized Health Care Education/Training Program; FAMILY PHYSICIAN Family Medicine | DX: I25.9 Chronic ischemic heart disease, unspecified (principal) | CPT/HCPCS: 93306 ==

== ENCOUNTER 2025-01-23 11:25 | Emergency (ER) | payer MEDICARE, SELFPAY ==
[2025-01-23 11:34] VITALS: BP 171/95
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
[2025-01-23] MEDS: TORADOL 30 MG IM (13:56)
[2025-01-23 16:00] VITALS: BP 139/75
== END 2025-01-23 16:30 | disposition home or self-care (01) ==
LOC: EMR 11:25
PROVIDERS: EMERGENCY PHYSICIAN Emergency Medicine; FAMILY PHYSICIAN Family Medicine
DX: M48.56XA Collapsed vertebra, not elsewhere classified, lumbar region, initial encounter for fracture (principal); I11.0 Hypertensive heart disease with heart failure; I50.9 Heart failure, unspecified; G57.91 Unspecified mononeuropathy of right lower limb; F17.200 Nicotine dependence, unspecified, uncomplicated; V47.5XXD Car driver injured in collision with fixed or stationary object in traffic accident, subsequent encounter; Z98.1 Arthrodesis status; Z96.651 Presence of right artificial knee joint; Z86.711 Personal history of pulmonary embolism; Z79.82 Long term (current) use of aspirin; Z79.4 Long term (current) use of insulin
CPT/HCPCS: 99284; 96372; 72110

== ENCOUNTER → 2025-01-31 09:32 | Outpatient (REF) | payer MEDICARE, SELFPAY | LOC: RAD 09:32 | PROVIDERS: ATTENDING PHYSICIAN Surgery Vascular Surgery; FAMILY PHYSICIAN Family Medicine | DX: I65.23 Occlusion and stenosis of bilateral carotid arteries (principal) | CPT/HCPCS: 93880 ==

== ENCOUNTER 2025-06-09 06:14 | Day surgery (SDC) | payer MEDICARE, SELFPAY ==
[2025-05-29 14:04] VITALS: BMI 24.9
[2025-06-09] VITALS (9 sets, daily range): BP systolic 115–167; BP diastolic 77–85; BMI 24.9
[2025-06-09 11:23] LABS: Glucose - Point of Care 120 mg/dl (70-99)
[2025-06-09] MEDS: NORMOSOL-R/PLASMALYTE-A 1000 IV (11:30)
[2025-06-09] MEDS: CELEBREX 200 MG PO (11:35)
[2025-06-09] MEDS: TYLENOL 1000 MG PO (11:35)
[2025-06-09 13:45] LABS: Glucose - Point of Care 145 mg/dl (70-99)
[2025-06-09] MEDS: DILAUDID 0.25 MG IV (13:51)
== END 2025-06-09 15:15 | disposition home or self-care (01) ==
LOC: SDS 06:14
PROVIDERS: ATTENDING PHYSICIAN Specialist; FAMILY PHYSICIAN Family Medicine
DX: M75.41 Impingement syndrome of right shoulder (principal); T84.84XA Pain due to internal orthopedic prosthetic devices, implants and grafts, initial encounter; Y83.1 Surgical operation with implant of artificial internal device as the cause of abnormal reaction of the patient, or of later complication, without mention of misadventure at the time of the procedure
CPT/HCPCS: 29819; 29823; 73020; 82962